=== PATIENT | female | born 1960 | race Caucasian/White ===

== ENCOUNTER → 2017-05-07 | Outpatient (CLI) | payer MEDICARE ==
[~2017-05-07] MED LIST: BUTRANS TD; CELE200; DICL75ER PO; HORMONE REPLACEMENT; HYDACE10B PO; LORPSEER24 PO; OXYC10ER PO; OXYC5 PO; POLY17UD PO; PRAM.5 PO
[2017-05-07 10:42] LABS: Influenza A Negative (NEGATIVE); Influenza B Negative (NEGATIVE)
== END ==
LOC: LAB EV 08:36
PROVIDERS: Family Medicine
DX: B34.9 Viral infection, unspecified (principal)
CPT/HCPCS: 87804

== ENCOUNTER → 2018-10-20 | Outpatient (CLI) | payer MEDICARE ==
[~2018-10-20] MED LIST changes: +DULO30 PO; +GABA300 PO; +MS Contin15 MG PO; +Naltrexone HCl50 MG PO; +PRAM.125 PO
== END | disposition home or self-care (01) ==
LOC: LAB EV 09:27 → LAB SHORT 09:27
DX: J06.9 Acute upper respiratory infection, unspecified (principal)
CPT/HCPCS: 87081

== ENCOUNTER 2024-12-27 12:36 | Day surgery (SDC) | payer MEDICARE, OTHER ==
[~2024-12-27] VITALS: Ht 162.6 cm; Wt 93.8 kg
[2024-12-27] MEDS ORDERED: PANT20 (12:59)
[2024-12-27] MEDS ORDERED: MIRALAX17 GM (13:00)
[2024-12-27 15:00] VITALS: BP 115/74
--- NOTE | 2024-12-27 15:02 | NUR ---
12/27/24 1502 LUCIE SZYMANSKI PT WITH EXP WHEEZES POST PROCEDURE. PT ABLE TO DEEP BREATHE AND COUGH, MAINTAINING O2 SATS OF 98% ON ROOM AIR.PT WITH HX OF COPD, DAHLIA, ASTHMA. HAS BREATHING TREATMENTS AT HOME AND WILL USE THESE ONCE HOME.
== END 2024-12-27 14:50 | disposition home or self-care (01) ==
LOC: ORSCSDS 12:36
PROVIDERS: Specialist
PROC: 0D758ZZ Dilation of Esophagus, Via Natural or Artificial Opening Endoscopic (ICD-10-PCS; principal; 2024-12-27 14:30)
PROC: 0DB98ZX Excision of Duodenum, Via Natural or Artificial Opening Endoscopic, Diagnostic (ICD-10-PCS; principal; 2024-12-27 14:30)
PROC: 0DB78ZX Excision of Stomach, Pylorus, Via Natural or Artificial Opening Endoscopic, Diagnostic (ICD-10-PCS; principal; 2024-12-27 14:30)
PROC: 0DB58ZX Excision of Esophagus, Via Natural or Artificial Opening Endoscopic, Diagnostic (ICD-10-PCS; principal; 2024-12-27 14:30)
DX: R13.10 Dysphagia, unspecified (principal); K21.9 Gastro-esophageal reflux disease without esophagitis; K44.9 Diaphragmatic hernia without obstruction or gangrene; K29.70 Gastritis, unspecified, without bleeding; J44.9 Chronic obstructive pulmonary disease, unspecified; G47.33 Obstructive sleep apnea (adult) (pediatric); E66.9 Obesity, unspecified; Z68.35 Body mass index [BMI] 35.0-35.9, adult; Z79.899 Other long term (current) drug therapy
CPT/HCPCS: 88305; 88342; C1769; J2704; J7120